=== PATIENT | male | born 1965 | race Two or more races ===

== ENCOUNTER 2020-11-24 08:55 | Emergency (ER) | payer SELFPAY ==
--- NOTE | ~2020-11-24 | XR_ITS ---
EXAMINATION: XR abdomen/kub 1V DATE: 11/24/2020 11:38 INDICATION: Right ureteral stone. TECHNIQUE: A supine view of the abdomen was obtained. COMPARISON: CT abdomen and pelvis 11/24/2020 FINDINGS: There are no dilated loops of bowel. There is contrast in the renal collecting system. Ther e is mild right hydronephrosis. IMPRESSION: 1. Mild right hydronephrosis. Reviewed, dictated and finalized at location B.
--- NOTE | ~2020-11-24 | CT_ITS ---
EXAMINATION: CT abdomen pelvis w con DATE: 11/24/2020 10:59 INDICATION: Left lower quadrant abdominal pain. TECHNIQUE: Computed tomography (CT) of the abdomen and pelvis was performed with 100 mL Omnipaque 350 intravenous contrast. Automated exposure control and iterative reconstruction technique were employe d. The dose-length product was 379.84 mGy-cm. COMPARISON: CT abdomen and pelvis 07/06/2019 FINDINGS: The visualized portions of the lung bases demonstrate mild atelectasis. No pleural effusion . The heart size is normal. No pericardial effusion. The liver, gallbladder, spleen, pancreas, and ad renal glands are normal. There is a 2 mm stone in right kidney. There is a 6 mm stone in proximal rig ht ureter. There is a 6 mm cyst in right kidney. There is a 3 mm stone in left kidney. There is a 5 m m cyst in left kidney. There is fat stranding around an epiploic appendage of sigmoid colon, consiste nt with epiploic appendagitis. There are no dilated loops of bowel. The appendix is not visualized. T here are no pathologically enlarged lymph nodes. There is no free intraperitoneal fluid. There is mil d lumbar spondylosis. IMPRESSION: 1. Epiploic appendagitis of sigmoid colon. 2. 6 mm stone in proximal right ureter. No hydronephrosis. 3. Small bilateral nonobstructing kidney stones. Reviewed, dictated and finalized at location B.
[2020-11-24 09:15] VITALS: BP 157/92; PULSE 98; RESP 16; TEMP 36.4; O2SAT 99
[2020-11-24 09:20] LABS: Basophils Percent Auto 0.5 % (0.2-1.2); Eosinophils Absolute Auto 0.3 K/mm3 (0-0.3); Eosinophils Percent Auto 3.8 % (0-4.4); Hematocrit 47.3 % (42.0-52.0); Hemoglobin 15.5 g/dL (14.0-18.0); Immature Granulocyte Absolute 0.02 K/mm3 (0.00-0.031); Immature Granulocyte Percent A 0.3 % (0-0.5); Lymphocytes Percent Auto 50.6 % (18.3-44.2); Mean Corpuscular HGB Conc 32.8 g/dl (32-36); Mean Corpuscular Hemoglobin 31.3 pg (26-34); Mean Corpuscular Volume 95.4 fl (80-100); Monocytes Absolute Auto 0.5 K/mm3 (0.1-0.6); Monocytes Percent Auto 5.8 % (2.6-8.5); Neutrophils Absolute Auto 3.1 K/mm3 (1.3-6.7); Platelet Count Result 209 k/mm3 (150-375); Red Blood Count 4.96 M/mm3 (4.6-6.20); Red Cell Distribution Width 12.9 % (11.5-14.5); White Blood Count 7.9 K/mm3 (4.5-10.0)
[2020-11-24 09:30] LABS: Alanine Aminotransferase 21 U/L (4-50); Albumin Level 4.4 g/dL (3.5-5.1); Alkaline Phosphatase 92 U/L (38-126); Anion Gap 3 mmol/L (8-16); Aspartate Amino Transferase 30 U/L (17-59); Bilirubin,Total 0.6 mg/dL (0.2-1.3); Blood Urea Nitrogen 9 mg/dL (9-20); Calcium 13.4 mg/dL (8.4-10.2); Carbon Dioxide 27 mmol/L (22-30); Chloride 111 mmol/L (98-107); Estimated CRCL calculation 62 ml/min; Estimated Glomerular Filt Rate > 60; Glucose 134 mg/dL (75-110); Lipase 120 U/L (23-300); Potassium 4.3 mmol/L (3.4-5.0); Sodium 141 mmol/L (137-145)
[2020-11-24 09:48] LABS: Add Urine Microscopic? YES; Appearance Urine Cloudy (Clear); Bacteria Urine Trace /hpf; Bilirubin Urine Negative (Negative); Blood Urine 1+ (Negative); Calcium Oxalate Crystals Urine Present /hpf; Color Urine Yellow (Yellow); Glucose Urine UA Negative (Negative); Ketones Urine Negative (Negative); Leukocyte Esterase Ur 2+ LEU/UL (Negative); Mucus Urine Few /lpf; Nitrate Urine Negative (Negative); Protein Urine 1+ mg/dL (Negative); Specific Grav Ur 1.017 (1.001-1.035); Squamous Epithelial Cell Urine Rare /hpf (Few); Urobilinogen Urine Negative mg/dL (<2.0); WBC Urine 21-30 /hpf
--- NOTE | 2020-11-24 10:25 | PC.NURSE ---
x4-5 days non-radiating LLQ pain, denies N/V/D, LBM today normal, denies urinary s/s, afebrile. Denies sick contacts
[2020-11-24 10:31] VITALS: BP 147/100; PULSE 75; RESP 16; O2SAT 100
[2020-11-24] MEDS: MORPHINE SULFATE (*CRX) 4 MG/ML INJ IV PUSH (10:38)
--- NOTE | 2020-11-24 11:45 | ED.GENADULT ---
HPI - General Adult General Chief complaint: Abdominal Pain Stated complaint: abd pain Time Seen by Provider: 11/24/20 10:14 History of Present Illness HPI narrative: Patient is a 55-year-old male who presents ER with left lower quadrant abdominal pain. Worsening over the last 4 to 5 days. It is a sharp pain. No radiation. Worse with movement. No diarrhea or nausea or vomiting. He is without fevers or chills. Has history of kidney stones and is concerned he is passing another one. No urinary frequency or urgency. Denies dysuria or hematuria. Related Data Allergies Allergy/AdvReac Type Severity Reaction Status Date / Time No Known Allergies Allergy Verified 07/06/19 17:37 Review of Systems Review of Systems: All systems reviewed & are unremarkable except as noted in HPI and below Constitutional: Constitutional: Denies chills and Denies fever(s) Gastrointestinal: Gastrointestinal: Reports abdominal pain, Denies diarrhea, Denies nausea and Denies vomiting Genitourinary: Genitourinary: Denies hematuria, Denies dysuria and Denies urinary frequency Musculoskeletal: Musculoskeletal: Denies back pain and Denies muscle cramps PMFSH Past Medical History Medical History (Updated 11/24/20 @ 11:54 by Azam Dooley MD) Hypertension Kidney stones Surgical History Surgical History (Updated 11/24/20 @ 11:47 by Azam Dooley MD) No pertinent past surgical history Social History Social History (Updated 07/06/19 @ 17:36 by Negar Guevara PA-C) Smoking status: Never smoker Substance use: never Gender identity (if verbalized by the patient): Male Exam Narrative: Exam Narrative: GENERAL: Well-appearing, well-nourished, and in no acute distress. HEAD: Normocephalic, atraumatic. CHEST: Clear to auscultation. No respiratory distress. HEART: Regular rate and rhythm. Normal peripheral pulses. ABDOMEN: Soft, moderate tenderness to palpation left lower quadrant without guarding, nondistended, normal active bowel sounds. No CVA tenderness. EXTREMITIES: Normal range of motion. No edema. SKIN: Warm, dry, no rash. NEURO: Alert and oriented x3. Course Course Emergency Course: Patient informed of results. Educated on need to avoid NSAIDs. He is verbalized understanding of this. Discussed case with Dr. Katsikas. Like patient have 1 g of Ancef prior to discharge and then start patient on ciprofloxacin. They will follow him up in the clinic this week and decide on whether he needs lithotripsy or not. Urine already sent for culture. Vital Signs Vital signs: Vital Signs Temperature 97.5 F L 11/24/20 09:15 Pulse Rate 98 11/24/20 09:15 Respiratory Rate 16 11/24/20 09:15 Blood Pressure 157/92 H 11/24/20 09:15 Pulse Oximetry 99 11/24/20 09:15 Temperature 97.5 F L 11/24/20 09:15 Pulse Rate 75 11/24/20 10:31 Respiratory Rate 16 11/24/20 10:31 Blood Pressure 147/100 H 11/24/20 10:31 Pulse Oximetry 100 11/24/20 10:31 Medical Decision Making Vital Signs Vital Signs: Vital Signs Temperature 97.5 F L 11/24/20 09:15 Pulse Rate 98 11/24/20 09:15 Respiratory Rate 16 11/24/20 09:15 Blood Pressure 157/92 H 11/24/20 09:15 Pulse Oximetry 99 11/24/20 09:15 Temperature 97.5 F L 11/24/20 09:15 Pulse Rate 75 11/24/20 10:31 Respiratory Rate 16 11/24/20 10:31 Blood Pressure 147/100 H 11/24/20 10:31 Pulse Oximetry 100 11/24/20 10:31 Lab Data Result diagrams: 11/24/20 09:06 11/24/20 09:06 Labs: Lab Results 11/24/20 11/24/20 11/24/20 Range/Units 09:06 09:06 09:30 WBC 7.9 (4.5-10.0) K/mm3 RBC 4.96 (4.6-6.20) M/mm3 Hgb 15.5 (14.0-18.0) g/dL Hct 47.3 (42.0-52.0) % MCV 95.4 (80-100) fl MCH 31.3 (26-34) pg MCHC 32.8 (32-36) g/dl RDW 12.9 (11.5-14.5) % Plt Count 209 (150-375) k/mm3 MPV 10.0 (7.4-10.4) fl Immature Gran % (Auto) 0.3 (0-0.5) % Neut % (Auto) 39.0 L
[2020-11-24 12:37] VITALS: BP 133/103; PULSE 61; RESP 13; O2SAT 98
== END 2020-11-24 12:58 | disposition home or self-care (01) ==
PROVIDERS: Emergency Provider Emergency Medicine
DX: N20.2 Calculus of kidney with calculus of ureter (principal); K63.89 Other specified diseases of intestine; I10 Essential (primary) hypertension; Z87.442 Personal history of urinary calculi
CPT/HCPCS: 36415; 74018; 74177; 80053; 81001; 83690; 85025; 87086; 96365; 96375; 99284; J0690; J2270; Q9967